=== PATIENT | female | born 1995 | race Caucasian/White ===

== ENCOUNTER 2017-06-04 06:02 | Inpatient (IN) | payer OTHER ==
[~2017-06-04] VITALS: Ht 167.6 cm; Wt 71.0 kg
--- NOTE | 2017-06-06 08:13 | PR ---
[facility] [address] [place], [place] [address] Signed PP Progress Notes Datetime Report Generated by CPN: 06/06/2017 08:13 SUBJECTIVE: [id number] Pain: Within normal limits Pain Comments: Not much sleep overnight. Vital Signs: [id number] Vital Signs: Reviewed; Within Normal Limits EXAM: [id number] Cardiovascular: Not Done Respiratory: Not Done Abdomen/Uterus: Abnormal Lochia: Normal Vulva/Perineum: Not Done Breasts: Not Done CVA Tenderness: Not Done Extremities: Normal Incision: Not Applicable Progress: Normal Exam Comments: Fundus firm, NT @ U-1. H/H 8.4/24.3, WBC 13.2, plat 149k IMPRESSION/PLAN/PROCEDURES: [id number] Impression: Normal progression Plan: Discharge Procedures: None Progress Notes: Doing well. She desires D/C later today. Signing Physician: Pily Maradiaga MD CC: *Electronically Signed* 06/06/17812 PILY MARADIAGA MD PATIENT NAME: OLIVIA HANCOCK PROGRESS NOTE DATE OF : 95 PHYSICIAN: PILY MARADIAGA MD RPT #: [id number] REPORT IS CONFIDENTIAL AND NOT TO BE RELEASED WITHOUT AUTHORIZATION
== END 2017-06-06 18:00 | disposition home or self-care (01) | DRG 775 ==
LOC: FBC 06:02
PROVIDERS: ADMIT Obstetrics & Gynecology
PROC: 10907ZC Drainage of Amniotic Fluid, Therapeutic from Products of Conception, Via Natural or Artificial Opening (ICD-10-PCS; 2017-06-04)
PROC: 10E0XZZ Delivery of Products of Conception, External Approach (ICD-10-PCS; principal; 2017-06-05)
PROC: 0KQM0ZZ Repair Perineum Muscle, Open Approach (ICD-10-PCS; 2017-06-05)
DX: O14.94 Unspecified pre-eclampsia, complicating childbirth (principal); O24.429 Gestational diabetes mellitus in childbirth, unspecified control; O70.1 Second degree perineal laceration during delivery; O42.02 Full-term premature rupture of membranes, onset of labor within 24 hours of rupture; Z3A.37 37 weeks gestation of pregnancy; Z37.0 Single live birth
CPT/HCPCS: 01960; 36415; 82565; 84450; 84520; 84550; 85025; 85027; J1644; J2590; J3010; J7120